=== PATIENT | male | born 1940 | race Caucasian/White ===

== ENCOUNTER → 2017-08-01 | Outpatient (CLI) | payer OTHER | LOC: FIMAGING 13:43 | PROVIDERS: ATTEND Family Medicine | DX: I65.23 Occlusion and stenosis of bilateral carotid arteries (principal); E78.5 Hyperlipidemia, unspecified | CPT/HCPCS: 0126T ==

== ENCOUNTER → 2017-09-13 | Outpatient (CLI) | payer OTHER | LOC: SUPIMAGING 13:24 | PROVIDERS: ATTEND Family Medicine | DX: M25.551 Pain in right hip (principal); M25.552 Pain in left hip | CPT/HCPCS: 73521-PN ==

== ENCOUNTER 2017-11-07 17:44 | Inpatient (IN) | payer OTHER ==
[2017-11-07 19:25] LABS: PLATELET COUNT 243 10^3/uL (150-400)
--- NOTE | 2017-11-07 19:45 | EDPHY ---
H & P Stated Complaint: MRI SHOWED ? INFECTION IN SPINE Time Seen by Provider: 11/07/17 18:45 HPI/ROS: Chief complaint: Spine infection History of present illness: This is a 77-year-old male who is generally healthy who was sent to the emergency department by his neurologist for a spine infection. Patient has had sharp hip pain, ultimately he was referred to a neurologist. The neurologist order the thoracic spine MRI which is concerning for osteomyelitis of C7 and T1 and sent patient here. Patient states he has had slightly decreased energy for the last few months. Other than that he feels fine. No fever, no back pain. No other complaints. Review of systems: A 10 point review of systems was obtained and other than described above was negative. - Personal History Current Tetanus Diphtheria and Acellular Pertussis (TDAP): Yes - Medical/Surgical History Hx Asthma: No Hx Chronic Respiratory Disease: No Hx Diabetes: No Hx Cardiac Disease: No Hx Renal Disease: No Hx Cirrhosis: No Hx Alcoholism: No Hx HIV/AIDS: No Hx Splenectomy or Spleen Trauma: No Other PMH: HTN - Physical Exam Exam: General Appearance: Alert, no distress. Eyes: Pupils equal and round no pallor or injection. ENT, Mouth: Mucous membranes moist. Respiratory: There are no retractions, lungs are clear to auscultation. Cardiovascular: Regular rate and rhythm. Gastrointestinal: Abdomen is soft and non tender, no masses, bowel sounds normal. Neurological: Alert and oriented x4. Skin: Warm and dry, no rashes. Musculoskeletal: Neck is supple non tender. The spine is nontender to palpation along its entire length. Extremities are symmetrical, full range of motion. Psychiatric: Patient is oriented X 3, there is no agitation. Constitutional: Initial Vital Signs Temperature (C) 36.8 C 11/07/17 17:52 Heart Rate 89 11/07/17 17:52 Respiratory Rate 18 11/07/17 17:52 Blood Pressure 166/93 H 11/07/17 17:52 O2 Sat (%) 95 11/07/17 17:52 O2 Delivery Mode Room Air Allergies/Adverse Reactions: No Known Allergies Allergy (Unverified 11/07/17 17:51) Home Medications: Medication Instructions Recorded Acetaminophen [Tylenol 325mg (*)] 325 mg PO HS PRN 11/07/17 Losartan/Hydrochlorothiazide 1 each PO DAILY 11/07/17 [Losartan-Hctz 100-25 mg Tab] Rosuvastatin Calcium [Crestor 10mg 5 mg PO HS 11/07/17 (RX)] Medical Decision Making ED Course/Re-evaluation: Patient is discussed with my secondary supervising physician Dr. Brijesh Ballard. Patient presents to the emergency department with an outpatient MRI that shows possible osteomyelitis of C7 and T1. He is nontoxic. His vital signs are stable. Patient is admitted to Dr. Eva Mcdaniel. Dr. Rosaura Garza of Infectious Disease is consulted, she asked that antibiotics NOT be started until cultures including bone cultures are obtained. She will follow along with this patient. Dr. Hi Bhatt of neurosurgery has been consulted. He will see this patient tomorrow. Differential Diagnosis: Included but not limited to osteomyelitis, diskitis, malignancy, epidural lesion Departure - Departure Disposition: [facility] Inpatient Acute Clinical Impression: Osteomyelitis Qualifiers: Osteomyelitis type: unspecified type Osteomyelitis location: unspecified site Qualified Code(s): M86.9 - Osteomyelitis, unspecified Condition: Fair
[2017-11-07] MEDS ORDERED: ONDANSETRON DISINTEGRATING 4 MG TAB PO PRN (22:15)
[2017-11-07] MEDS ORDERED: ONDANSETRON 4 MG/2 ML VIAL IVP PRN (22:15)
[2017-11-07] MEDS ORDERED: ACETAMINOPHEN 325 MG TAB PO PRN (22:15)
--- NOTE | 2017-11-08 01:05 | PDGENHP ---
History and Physical - Chief Complaint Incidentally found spinal infection - History of Present Illness 77 yo M w/ minimal PMHx was directed to ED by neurologist after abnormal imaging finding. Patient explains that he had some R hip pain so his PCP sent him to see a specialist. The specialist order an MRI (unclear why of his thoracic spine), which showed possible OM/diskitis. Patient has noted some mild fatigue over last few weeks but denies back pain, fevers/chills, any recent infection or other infectious symptoms. He did have a root canal 2 years ago but denies any recent oral issues. Of note, his hip pain has now resolved. History Information - Allergies/Home Medication List Allergies/Adverse Reactions: No Known Allergies Allergy (Unverified 11/07/17 17:51) Home Medications: Acetaminophen [Tylenol 325mg (*)] 325 mg PO HS PRN 11/07/17 [Last Taken Unknown] Losartan/Hydrochlorothiazide [Losartan-Hctz 100-25 mg Tab] 1 each PO DAILY 11/07 [Last Taken 11/07/17] Rosuvastatin Calcium [Crestor 10mg (RX)] 5 mg PO HS 11/07/17 [Last Taken ] I have personally reviewed and updated: family history, medical history - Past Medical History no pertinent PMH - Surgical History Additional surgical history: Meniscus repair. Hemorrhoid surgery - Family History Positive for: CAD - Social History Smoking Status: Former smoker Review of Systems Review of Systems: ROS: 10pt was reviewed & negative except for what was stated in HPI & below Physical Exam Physical Exam: Temp Pulse Resp BP Pulse Ox 36.5 C 75 16 165/95 H 95 11/07/17 20:52 11/07/17 20:52 11/07/17 20:52 11/07/17 20:52 11/07/17 20:52 Constitutional: no apparent distress, not in pain Eyes: PERRL, EOMI Ears, Nose, Mouth, Throat: moist mucous membranes, no oral mucosal ulcers Cardiovascular: regular rate and rhythym, no murmur, rub, or gallop Respiratory: no respiratory distress, clear to auscultation Gastrointestinal: normoactive bowel sounds, soft, non-tender abdomen Skin: warm, normal color Musculoskeletal: full muscle strength, no muscle tenderness Neurologic: AAOx3, CN II-XII Intact Psychiatric: interacting appropriately, not anxious Lab Data & Imaging Review 11/07/17 18:57 11/07/17 18:57 WBC 5.04 10^3/uL (3.80-9.50) 11/07/17 18:57 RBC 4.98 10^6/uL (4.40-6.38) 11/07/17 18:57 Hgb 15.6 g/dL (13.7-17.5) 11/07/17 18:57 Hct 44.4 % (40.0-51.0) 11/07/17 18:57 MCV 89.2 fL (81.5-99.8) 11/07/17 18:57 MCH 31.3 pg (27.9-34.1) 11/07/17 18:57 MCHC 35.1 g/dL (32.4-36.7) 11/07/17 18:57 RDW 12.4 % (11.5-15.2) 11/07/17 18:57 Plt Count 243 10^3/uL (150-400) 11/07/17 18:57 MPV 9.1 fL (8.7-11.7) 11/07/17 18:57 Neut % (Auto) 75.0 % (39.3-74.2) H 11/07/17 18:57 Lymph % (Auto) 13.9 % (15.0-45.0) L 11/07/17 18:57 [place] % (Auto) 8.5 % (4.5-13.0) 11/07/17 18:57 Eos % (Auto) 1.6 % (0.6-7.6) 11/07/17 18:57 Baso % (Auto) 0.8 % (0.3-1.7) 11/07/17 18:57 Nucleat RBC Rel Count 0.0 % (0.0-0.2) 11/07/17 18:57 Absolute Neuts (auto) 3.78 10^3/uL (1.70-6.50) 11/07/17 18:57 Absolute Lymphs (auto) 0.70 10^3/uL (1.00-3.00) L 11/07/17 18:57 Absolute Monos (auto) 0.43 10^3/uL (0.30-0.80) 11/07/17 18:57 Absolute Eos (auto) 0.08 10^3/uL (0.03-0.40) 11/07/17 18:57 Absolute Basos (auto) 0.04 10^3/uL (0.02-0.10) 11/07/17 18:57 Absolute Nucleated RBC 0.00 10^3/uL (0-0.01) 11/07/17 18:57 Immature Gran % 0.2 % (0.0-1.1) 11/07/17 18:57 Immature Gran # 0.01 10^3/uL (0.00-0.10) 11/07/17 18:57 ESR 15 MM/HR (0-20) 11/07/17 18:57 Sodium 131 mEq/L (135-145) L 11/07/17 18:57 Potassium 4.2 mEq/L (3.3-5.0) 11/07/17 18:57 Chloride 95 mEq/L (97-110) L 11/07/17 18:57 Carbon Dioxide 24 mEq/l (22-31) 11/07/17 18:57 Anion Gap 12 mEq/L (8-16) 11/07/17 18:57 BUN 12 mg/dL (7-23) 11/07/17 18:57 Creatinine 0.7 mg/dL (0.7-1.3) 11/07/17 18:57 Estimated GFR > 60 11/07/17 18:57 Glucose 93 mg/dL (70-100) 11/07/17 18:57 Calcium 9.3 mg/dL (8.5-10.4) 11/07/17 18:57 C-Reactive Protein < 5.0 mg/L (<10.0) 11/07/17 18:57 Imaging Review: T-spine MRI Impression: 1. C7 and T1 vertebral bodies demonstrate abnormal signal intensity , with diffuse edema and enhancement as well as ventral and right and left paraspinal enhancement, suggesting osteomyelitis. No definite evidence of diskitis. There is mild ventral epidural enhancement, without definite abscess. Associated severe degenerative disk disease at C7-T1, with dorsal disk/ osteophyte complex , resulting in severe central canal stenosis and cord compression likely etiology for the patient's hyperreflexia. 2. Recommend MRI of the cervical spine, without and with contrast enhancement. Assessment & Plan Assessment: 77 yo M w/ no significant PMHx p/w OM of C7/T1 incidentally found on imaging. Plan: 1. Suspected C7/T1 OM - Based on MRI findings, patient denies symptoms aside from mild fatigue. Discussed with ID who requested antibiotics not be started until after culture data is available. - Observe off of antibiotics - Blood cultures pending - Neurosurgery consulted for possible biopsy, will maintain NPO after MN - ID consulted, appreciate assistance - Discussed case with Dr. Jonas Rai - NPO @ NH Code - Full Ppx - SCDs Dispo - Admit under inpatient status noting need for further testing and likely IV antibiotics
[2017-11-08 05:01] LABS: PLATELET COUNT 217 10^3/uL (150-400)
[2017-11-08] MEDS: LOSARTAN POTASSIUM 50 MG TAB PO SCH ×2 (05:53→10:25)
--- NOTE | 2017-11-08 09:38 | GCON ---
[f rep st] CONSULTATION NEUROSURGICAL CONSULTATION HISTORY OF PRESENT ILLNESS: The patient is a pleasant 77-year-old male who is being admitted for fur ther evaluation of abnormalities at the C7-T1 level that were noted on a thoracic MRI that was ordere d by his neurologist recently. It is unclear why the thoracic MRI was ordered, but this did catch th e C7-T1 level, which demonstrated some abnormal findings and concern for osteomyelitis/diskitis at th e C7-T1 level. The patient states that he has been feeling fine lately. He has not had any fevers, chills, or sweat s. He states that approximately 6 weeks ago, he developed some right-sided hip and groin pain and wa s then sent by his primary care physician to an orthopedic doctor, who started the patient on physica l therapy with subsequent resolution of those symptoms. The patient's , who was present, states that the patient has been feeling tired over the past several weeks, but the patient did recently go dancing this past weekend and has been quite active. He states that overall he feels just fine. Fur thermore, he is not having any neck pain, numbness, tingling, or weakness in his upper or lower extre mities, and is not having difficulty with balance, fine motor tasks, or bowel or bladder changes. ALLERGIES: No known drug allergies. CURRENT MEDICATIONS: Tylenol, losartan/hydrochlorothiazide, and Crestor. PAST MEDICAL HISTORY: No pertinent past medical history. PAST SURGICAL HISTORY: Meniscus repair and hemorrhoid surgery. FAMILY HISTORY: Positive for coronary artery disease. SOCIAL HISTORY: The patient is a former smoker. He is and lives with his . REVIEW OF SYSTEMS: Negative, other than mentioned in the HPI. LABORATORY DATA: White blood cell count 4.6, hemoglobin 14.5, hematocrit 42.0, platelet count 217. ESR is 15. Sodium is 135. Potassium is 4.1, chloride 102, carbon dioxide 25, BUN 10, creatinine 0.7 . Blood cultures are pending. MRI of the thoracic spine: The MRI findings I have obtained from the admission history and physical and are not available for review. Based on the report, the C7 and T1 vertebral bodies demonstrate ab normal signal intensity, with diffuse edema and enhancement, as well as ventral and right and left pa raspinal enhancement, suggesting osteomyelitis. No definite evidence of diskitis. There is mild tahis tral epidural enhancement without definite abscess. Associated severe degenerative disk disease at C 7-T1, with dorsal disk/osteophyte complex, resulting in severe central canal stenosis and cord compre ssion is noted. PHYSICAL EXAM: GENERAL: Pleasant, healthy-appearing 77-year-old male in no apparent distress. HEEN T: Head, eyes, ears, nose, and throat within normal limits. EXTREMITIES: Within normal limits. MU SCULOSKELETAL: The patient has no tenderness to palpation of the cervical, thoracic, or lumbar spine , or paraspinal musculature. EXTREMITIES: [place], warm and dry. ABDOMEN: Soft, nontender, and nondi stended. NEUROLOGIC: Patient is awake, alert, and oriented x4. Cranial nerves 2-12 are intact to gross exami nation. Speech is fluent. Tongue is midline. Spinal accessory muscles are intact. He has equal an d symmetric strength of the bilateral upper and lower extremities throughout all muscle groups. He h as elevated reflexes globally with 3+/4 bilateral biceps and brachioradialis and patellar tendon refl exes, as well as bilateral clonus. He has negative Baker's bilaterally. IMPRESSION: This is a 77-year-old male who is admitted for concerns of C7-T1 osteomyelitis/diskitis that was incidentally noted on a thoracic MRI, which was ordered for unknown reasons (possibly for th e patient's clonus). At this time, the patient has no neurologic complaints or deficits, other than hyperreflexia and clonus on exam. PLAN: All above issues were discussed with the patient in detail with his , as well as with Dr. Hi Bhatt. At this time, the patient will undergo a cervical MRI with and without contrast to [facility] evaluate the C7-T1 level and a lumbar MRI with and without contrast for further evaluation of the patient's history of remote right-sided hip and groin pain. From our standpoint, the patient may res ume a regular diet. We will offer further recommendations based on the results of his imaging studie s. All the above issues were discussed with Dr. Hi Bhatt. /[id number]/MODL
[2017-11-08] MEDS ORDERED: NON-FORMULARY NEW DRUG (Losartan/Hydrochlorothiazide [Losartan-Hctz 100-25 Mg Tab] 1 EACH) PO SCH (09:42)
[2017-11-08] MEDS ORDERED: LOSARTAN/HCTZ 50/12.5 1 TAB PO SCH (10:00)
[2017-11-08] MEDS ORDERED: HYDROCHLOROTHIAZIDE 25 MG TAB PO ONE (10:15)
--- NOTE | 2017-11-08 12:23 | PDMN ---
Medical Necessity Medical necessity: est los>2mn for suspected C7/T1 osteomyelitis; admit for ID consult, observe off abx until cx data available, then likely IV abx, NS consult for possible bx; per order and H&P 11/07/17
[2017-11-08] MEDS ORDERED: GADOBUTROL 10 ML VIAL IVP ONE (12:25)
--- NOTE | 2017-11-08 15:47 | ASMTCMCOM ---
CM Note CM Note Notes: Pt may have osteomyelitis. Cultures pending. ID and neurosurgery to consult. Pt's DC plan is TBD. Date Signed: 11/08/2017 03:47 PM Electronically Signed By:Franca Carlos LCSW
--- NOTE | 2017-11-08 15:54 | PDDCSUM ---
Discharge Summary Discharge Summary: Dates of service 11/08/17 Consultations: neurosurgery, ID Procedures performed: T/L spine MRI Hospital course by problem: 77 yo M w/ no significant PMHx p/w OM of C7/T1 incidentally found on imaging. Plan: # C7/T1 bone marrow edema -Noted on MRI and initially concerning for infection but with lack of disc involvement, Neurosurgery does not feel this is likely -ID following and will f/u with patient after dc, histologies pending as below , other consideration is for malignancy and PSA sent - patient asymptomatic other than mild fatigue, neurosurgery does not feel further intervention needed currently -no abx for now Ppx - SCDs Dispo -dc home in good condition Items pending at time of discharge -TB, brucella, histoplasmosis serologies and PSA > 35 min spent in dc more than half in coordination of care
--- NOTE | 2017-11-08 16:05 | SOAPPROG ---
Downtime Inpatient MD Late Entry SOAP Note: This is not a soap note, but an update to document the patient's MRI findings. Dr. Bhatt reviewed Cervical and lumbar MRIs today and does not feel the patient has discitis in the cervial spine. He has moderate degenerative changes and spinal stenosis for which he may follow up with Dr. Bhatt as an outpatient in 4-6 weeks or sooner if he he has new or worsened symptoms. Dr. Bhatt will sign off today.
[2017-11-08 16:22] VITALS: BP 171/91
--- NOTE | 2017-11-08 19:11 | GCON ---
[f rep st] CONSULTATION DATE OF CONSULTATION: 11/08/2017 REASON FOR CONSULTATION: Abnormality at the C7-T1 spinal level. HISTORY OF PRESENT ILLNESS: This is a 77-year-old male with a past medical history of high blood pre ssure and hyperlipidemia, who is basically in his usual state of health, specifically stating he went dancing with his on Monday night and walked 2 miles the following day, who has currently been under evaluation for right hip pain. The patient was initially evaluated by primary care, who referr ed the patient to Orthopedics, who felt patient had a Babinski on the right foot. Subsequently, ardián cordova was referred to Neurology, who performed an MRI of the T-spine. The T-spine was found to have enha ncement at C7-T1, and moderate central canal stenosis with slight cord compression. There was also ve rtebral body edema enhancement that could be consistent with an infectious process. I personally revi ewed the images with Radiology and went over scan with the patient and his at the bedside. The p atient's symptoms were reviewed and the patient states that maybe he had slightly less energy x6 alberto hs. He denies any specific dental problems and his weight has been stable in the 130s since he has be en in high school. His appetite is okay without any GI symptoms. He denies any symptoms of headache o r focal neurologic symptoms and the patient exercises almost on a daily basis. He denies any rashes. Review of potential exposures: The patient's step mom did have tuberculosis when she was young, but a s far as knows, never had active disease when he knew her. He has had a negative PPD 10 years ago and denies any specific extensive exposure to immigrants. The patient was transiently in skilled nursing overnight once when he was in his 20s. He has had some international travel to [place] and [place] in 2005 and 2006 and went to [place] last year. [place] area without livestock exposure. He meek s not eat unpasteurized cheese, sushi, or sit in hot tubs. PAST MEDICAL HISTORY: Hypertension, hyperlipidemia. PAST SURGICAL HISTORY: Left meniscus repair 10 years ago, hemorrhoid repair. His colonoscopy was 10 years ago. ALLERGIES: NKDA. FAMILY HISTORY: His father had an PA. Mother of old age. No cancer that he considers to run in the family, although his brother of lung cancer, but had a lifetime of tobacco use. SOCIAL: Patient has 2 children, 1 is alive and generally healthy, 1 in a motor vehicle accident . SOCIAL HISTORY: The patient has a dog. He was born in [place], [place], and lived his entire life in [place], except for a short time during his service in the [employer], which for 7 yea rs he lived in [place]. He did not have any international travel while he was in the service. The luis erickson smoked tobacco from age [age], 1 pack per day. He drinks 1-2 alcoholic beverages a day. He has been for 49 years. REVIEW OF SYSTEMS: A complete 10-point review of systems was performed and is negative except as men tioned in the HPI. PHYSICAL EXAM: VITAL SIGNS: Temperature 37.3, blood pressure 150/90, heart rate 72. He has been afeb rile. GENERAL: This is a very pleasant, conversational male lying in bed in no acute distress. HEENT: Pupils are reactive bilaterally. Oropharynx, patient has fair dentition. Moist mucous membranes. No oral ulcerations or exudates. NECK: Supple. No lymphadenopathy. CARDIOVASCULAR: Regular rate. No murm urs. CHEST: Clear to auscultation bilaterally. ABDOMEN: Soft, nontender. Bowel sounds are present. EX TREMITIES: No clubbing, cyanosis, or edema. SKIN: The patient had no rashes. NEUROLOGIC: Patient was ambulating about the room without difficulty and no focal deficits in his strength. LABORATORY: White count is 4.6 with 62% neutrophils, 23% lymphocytes, hematocrit 42, platelets of 21 7. CRP was undetectable. ESR 15. Blood cultures from 11/07 were collected and are pending. Creatinine 0.7. IMAGING: As per HPI. In addition, imaging was performed of the lumbar spine, which showed no further vertebral body edema. ASSESSMENT AND PLAN: This is a 77-year-old male with minimal medical problems who is generally healt hy and very active, who was found to have some bone marrow edema of C7-T1 without disk inflammation. Certainly this edema could reflect infectious etiology, but somewhat atypical to not have disk involv ement. No obvious source of infection nor lab abnormalities to collaborate underlying infection. The patient has absolutely no neck pain. Reasonable to pursue a noninvasive workup of infection including blood culture looking for chronic infections such as TB, Brucella, histoplasmosis based on patient's exposure, although doubt these infections. The patient also agreeable to a chest x-ray. Also could c onsider malignancy and a PSA was sent. At this time, the patient does not desire further invasive audie ting such as needle biopsy or biopsy by surgical team, nor does he desire a workup with CT scans. Due to lack of signs of infection or other concerning symptoms to suggest malignancy such as weight loss , I feel this is a reasonable approach. Patient is to follow up in my clinic in 10 days for review of laboratory results. /[id number]/MODL
[2017-11-08] MEDS ORDERED: ROSUVASTATIN CALCIUM 10 MG TAB PO SCH (21:00)
[2017-11-09] MEDS ORDERED: LOSARTAN/HCTZ 50/12.5 1 TAB PO SCH (09:00)
[2017-11-10 12:26] LABS: BRUCELLA AB IGM Negative (Negative); BRUCELLA ANTIBODY IGG Negative (Negative); INTERPRETATION See Comments
== END 2017-11-08 17:54 | disposition home or self-care (01) | DRG 541 ==
LOC: F1N 20:22
PROVIDERS: ADMIT Internal Medicine; ATTEND Internal Medicine
DX: M46.23 Osteomyelitis of vertebra, cervicothoracic region (principal); I10 Essential (primary) hypertension; E78.5 Hyperlipidemia, unspecified; M48.02 Spinal stenosis, cervical region; M50.31 Other cervical disc degeneration, high cervical region; M50.321 Other cervical disc degeneration at C4-C5 level; M50.322 Other cervical disc degeneration at C5-C6 level; M50.323 Other cervical disc degeneration at C6-C7 level; M50.33 Other cervical disc degeneration, cervicothoracic region
CPT/HCPCS: 84154-90; 86622-90; 87385-90; A9585

== ENCOUNTER → 2017-11-07 | Outpatient (CLI) | payer OTHER ==
[~2017-11-07] MED LIST: GADOBUTROL 10 ML VIAL IVP ONE
== END ==
LOC: FIMAGING 11:43
PROVIDERS: ATTEND Psychiatry & Neurology Neurology
DX: M51.34 Other intervertebral disc degeneration, thoracic region (principal); M48.04 Spinal stenosis, thoracic region
CPT/HCPCS: 72157; A9585; 82565-PO